=== PATIENT | male | born 1955 | race Caucasian/White ===

== ENCOUNTER 2019-08-17 17:19 | Inpatient (IN) | payer OTHER ==
[2019-08-17 18:09] LABS: BASO % 0.4 % (0-2.0); EOS % 0.3 % (0-4.5); HEMATOCRIT 33.5 % (35.4-49); LYMPH % 8.2 % (8-40); MCHC 32.7 g/dl (32.0-35.9); MEAN CELL VOLUME 91.8 fl (80-96); MEAN PLT VOLUME 8.9 fl (7.5-11.1); MONO % 10.3 % (3.8-10.2); NEUT % 80.8 % (42.8-82.8); PLATELET COUNT 327 K/MM3 (134-434); RBC 3.66 M/mm3 (4.00-5.60); RDW 18.8 % (11.9-15.9); WHITE BLOOD COUNT 10.2 K/mm3 (4.0-10.0)
[2019-08-17] MEDS ORDERED: ACETAMINOPHEN 1000 MG/100 ML VIAL (NON FORMULARY) IVPB ONE (18:12)
[2019-08-17 18:25] LABS: INR 1.2 (0.83-1.09); PROTHROMBIN TIME (PATIENT) 14.2 SEC (9.7-13.0)
[2019-08-17 18:28] LABS: ACTIVATED PTT 29.9 SECONDS (25.2-36.5)
[2019-08-17 18:30] LABS: VENOUS PC02 47.2 mmHg (38-52); VENOUS PH 7.41 (7.31-7.41); VENOUS PO2 < 49 mmHg (28-48)
[2019-08-17 18:31] LABS: VENOUS BASE EXCESS 3.8 mmol/L (-2-2)
[2019-08-17] MEDS ORDERED: ACETAMINOPHEN INJECTION 100 ML IVPB ONE (18:31)
[2019-08-17 18:45] LABS: ALBUMIN 2.6 g/dl (3.4-5.0); BILIRUBIN,TOTAL 0.5 mg/dL (0.2-1); BLOOD UREA NITROGEN 49.9 mg/dL (7-18); CALCIUM 9.5 mg/dL (8.5-10.1); CREATININE 4.4 mg/dL (0.55-1.3); POTASSIUM 5.1 mmol/L (3.5-5.1); TOT PROT 7.6 g/dl (6.4-8.2)
[2019-08-17] MEDS ORDERED: PANTOPRAZOLE SODIUM 40 MG VIAL IVPUSH ONE (19:37)
[2019-08-17] MEDS ORDERED: PIPERACILLIN/TAZOB 2.25 GM 2.25 GM in DEXTROSE 5%-WATER - 50 ML IVPB ONE (19:40)
[2019-08-17] MEDS ORDERED: SODIUM CHLORIDE 500 ML IV ONE (19:41)
[2019-08-17] MEDS ORDERED: PANTOPRAZOLE SODIUM 40 MG VIAL ONE (19:50)
[2019-08-17] MEDS ORDERED: PIPERACILLIN/TAZOB 2.25 GM 2.25 GM/50 ML BAG IVPB ONE (19:50)
[2019-08-17] MEDS ORDERED: ACETAMINOPHEN 325 MG TABLET (FP) PO PRN (20:12)
[2019-08-17] MEDS ORDERED: hydrALAZINE HCL 25 MG TABLET (FP) ONE (21:42)
[2019-08-17] MEDS ORDERED: ATORVASTATIN CA 80 MG TABLET (FP) ONE (21:43)
[2019-08-17] MEDS ORDERED: GABAPENTIN 100 MG CAPSULE ONE (21:43)
[2019-08-17] MEDS ORDERED: METOPROLOL TARTRATE 50 MG TABLET (FP) ONE (21:43)
[2019-08-17] MEDS ORDERED: SENNOSIDES 8.6MG TABLET (FP) PO ONE (21:43)
[2019-08-17] MEDS ORDERED: SENNOSIDES 8.6MG TABLET (FP) PO SCH (22:00)
[2019-08-17] MEDS ORDERED: ISOSORBIDE DINITRATE 10 MG TABLET PO SCH (22:00)
[2019-08-17] MEDS ORDERED: ALBUTEROL SO4 0.083% IH SOL 2.5 MG/3 ML VIAL.NEB. NEB PRN (22:00)
[2019-08-17] MEDS: METOPROLOL TARTRATE 50 MG TABLET (FP) PO SCH (22:43)
[2019-08-17] MEDS: ATORVASTATIN CA 80 MG TABLET (FP) PO SCH (22:43)
[2019-08-17] MEDS: hydrALAZINE HCL 50 MG TABLET (FP) PO SCH (22:43)
[2019-08-17] MEDS: GABAPENTIN 100 MG CAPSULE PO SCH (22:43)
[2019-08-18] MEDS: METOPROLOL TARTRATE 50 MG TABLET (FP) PO SCH ×3 (06:17→22:03)
[2019-08-18] MEDS: hydrALAZINE HCL 50 MG TABLET (FP) PO SCH ×3 (06:17→22:02)
[2019-08-18] MEDS: GABAPENTIN 100 MG CAPSULE PO SCH (06:18)
[2019-08-18 07:56] LABS: BASO % 0.1 % (0-2.0); EOS % 0.8 % (0-4.5); HEMATOCRIT 29.7 % (35.4-49); HEMOGLOBIN 9.5 GM/dL (11.7-16.9); LYMPH % 7.1 % (8-40); MCH 29.1 pg (25.7-33.7); MEAN PLT VOLUME 8.8 fl (7.5-11.1); MONO % 10.1 % (3.8-10.2); NEUT % 81.9 % (42.8-82.8); PLATELET COUNT 279 K/MM3 (134-434); RBC 3.26 M/mm3 (4.00-5.60); RDW 18.5 % (11.9-15.9); WHITE BLOOD COUNT 12.2 K/mm3 (4.0-10.0)
[2019-08-18 08:12] LABS: ALBUMIN 2.4 g/dl (3.4-5.0); BILIRUBIN,TOTAL 0.6 mg/dL (0.2-1); BLOOD UREA NITROGEN 56.7 mg/dL (7-18); CALCIUM 9.5 mg/dL (8.5-10.1); CREATININE 4.9 mg/dL (0.55-1.3); MAGNESIUM 2.6 mg/dL (1.8-2.4); POTASSIUM 4.8 mmol/L (3.5-5.1); TOT PROT 6.8 g/dl (6.4-8.2)
[2019-08-18] MEDS: ISOSORBIDE DINITRATE 10 MG TABLET PO SCH ×3 (09:29→18:31)
[2019-08-18] MEDS: VITAMIN B COMP W-C 1 EA TABLET (NEPHRO-VITE) PO SCH (09:29)
[2019-08-18] MEDS: FERROUS SO4 325 MG TABLET (FP) PO SCH (09:29)
[2019-08-18] MEDS: CALCIUM ACETATE 667 MG CAPSULE (FP) PO SCH ×3 (09:34→18:28)
[2019-08-18] MEDS ORDERED: PANTOPRAZOLE SODIUM 40 MG VIAL IVPUSH SCH ×2 (10:00→12:30)
[2019-08-18] MEDS ORDERED: SODIUM CHLORIDE 250 ML IV PRN (10:25)
[2019-08-18] MEDS: PANTOPRAZOLE SODIUM 80 MG in SODIUM CHLORIDE 100 ML IVPB SCH ×2 (14:23→23:19)
[2019-08-18] MEDS ORDERED: PT OWN MED DRAWER 7, Y5N ONE ×2 (18:26→21:56)
[2019-08-18] MEDS ORDERED: PIPERACILLIN/TAZOBACTAM 2.25 GM VIAL IVPB ONE (18:26)
[2019-08-18] MEDS ORDERED: DEXTROSE 5%-WATER - 50 ML IVPB ONE (18:27)
[2019-08-18] MEDS: PIPERACILLIN/TAZOB 2.25 GM 2.25 GM in DEXTROSE 5%-WATER - 50 ML IVPB SCH (18:29)
[2019-08-18] MEDS: ATORVASTATIN CA 80 MG TABLET (FP) PO SCH (22:03)
[2019-08-19] MEDS ORDERED: PIPERACILLIN/TAZOBACTAM 2.25 GM VIAL IVPB ONE ×3 (00:59→17:00)
[2019-08-19] MEDS ORDERED: DEXTROSE 5%-WATER - 50 ML IVPB ONE ×3 (00:59→17:00)
[2019-08-19] MEDS: PIPERACILLIN/TAZOB 2.25 GM 2.25 GM in DEXTROSE 5%-WATER - 50 ML IVPB SCH ×3 (01:50→17:38)
[2019-08-19] MEDS ORDERED: PT OWN MED DRAWER 7, Y5N ONE ×3 (05:21→20:06)
[2019-08-19] MEDS: METOPROLOL TARTRATE 50 MG TABLET (FP) PO SCH ×3 (06:06→21:20)
[2019-08-19] MEDS: hydrALAZINE HCL 50 MG TABLET (FP) PO SCH ×3 (06:06→21:20)
[2019-08-19] MEDS ORDERED: EPOETIN ALFA-EPBX 4,000 UNIT/ML VIAL IVPUSH ONE (07:00)
[2019-08-19] MEDS: ISOSORBIDE DINITRATE 10 MG TABLET PO SCH ×3 (08:07→17:37)
[2019-08-19] MEDS: CALCIUM ACETATE 667 MG CAPSULE (FP) PO SCH ×4 (08:08→17:37)
[2019-08-19 08:23] LABS: HEMATOCRIT 28.4 % (35.4-49); HEMOGLOBIN 9.1 GM/dL (11.7-16.9); MCH 29.2 pg (25.7-33.7); MCHC 32.1 g/dl (32.0-35.9); MEAN CELL VOLUME 90.8 fl (80-96); MEAN PLT VOLUME 8.9 fl (7.5-11.1); PLATELET COUNT 290 K/MM3 (134-434); RBC 3.13 M/mm3 (4.00-5.60); RDW 18.4 % (11.9-15.9); WHITE BLOOD COUNT 11.5 K/mm3 (4.0-10.0)
[2019-08-19 09:00] LABS: BLOOD UREA NITROGEN 68.8 mg/dL (7-18); CREATININE 5.9 mg/dL (0.55-1.3); POTASSIUM 4.7 mmol/L (3.5-5.1)
[2019-08-19] MEDS: PANTOPRAZOLE SODIUM 80 MG in SODIUM CHLORIDE 100 ML IVPB SCH ×2 (10:40→21:20)
[2019-08-19] MEDS: FERROUS SO4 325 MG TABLET (FP) PO SCH (10:45)
[2019-08-19] MEDS: VITAMIN B COMP W-C 1 EA TABLET (NEPHRO-VITE) PO SCH (10:45)
[2019-08-19] MEDS: COLLAGENASE CLOSTRIDIUM HIST. 30 GRAMS TUBE TP SCH (15:15)
[2019-08-19] MEDS: ATORVASTATIN CA 80 MG TABLET (FP) PO SCH (21:21)
[2019-08-20] MEDS ORDERED: DEXTROSE 5%-WATER - 50 ML IVPB ONE ×3 (00:58→17:07)
[2019-08-20] MEDS ORDERED: PIPERACILLIN/TAZOBACTAM 2.25 GM VIAL IVPB ONE ×3 (00:58→17:07)
[2019-08-20] MEDS: PIPERACILLIN/TAZOB 2.25 GM 2.25 GM in DEXTROSE 5%-WATER - 50 ML IVPB SCH ×3 (01:34→17:41)
[2019-08-20] MEDS: PANTOPRAZOLE SODIUM 80 MG in SODIUM CHLORIDE 100 ML IVPB SCH ×4 (05:17→19:02)
[2019-08-20] MEDS: METOPROLOL TARTRATE 50 MG TABLET (FP) PO SCH ×3 (06:14→21:22)
[2019-08-20] MEDS: hydrALAZINE HCL 50 MG TABLET (FP) PO SCH ×3 (06:14→21:22)
[2019-08-20] MEDS: CALCIUM ACETATE 667 MG CAPSULE (FP) PO SCH ×4 (10:21→17:41)
[2019-08-20] MEDS: VITAMIN B COMP W-C 1 EA TABLET (NEPHRO-VITE) PO SCH (10:21)
[2019-08-20] MEDS: FERROUS SO4 325 MG TABLET (FP) PO SCH (10:21)
[2019-08-20] MEDS: ISOSORBIDE DINITRATE 10 MG TABLET PO SCH ×3 (10:23→17:41)
[2019-08-20] MEDS: COLLAGENASE CLOSTRIDIUM HIST. 30 GRAMS TUBE TP SCH (16:07)
[2019-08-20] MEDS ORDERED: SODIUM CHLORIDE 250 ML IV PRN (17:54)
[2019-08-20] MEDS: ATORVASTATIN CA 80 MG TABLET (FP) PO SCH (21:22)
[2019-08-21] MEDS: PANTOPRAZOLE SODIUM 80 MG in SODIUM CHLORIDE 100 ML IVPB SCH ×2 (01:47→05:04)
[2019-08-21] MEDS ORDERED: PIPERACILLIN/TAZOBACTAM 2.25 GM VIAL IVPB ONE ×3 (01:55→17:31)
[2019-08-21] MEDS ORDERED: DEXTROSE 5%-WATER - 50 ML IVPB ONE ×3 (01:56→17:32)
[2019-08-21] MEDS: PIPERACILLIN/TAZOB 2.25 GM 2.25 GM in DEXTROSE 5%-WATER - 50 ML IVPB SCH ×3 (02:02→17:41)
[2019-08-21] MEDS: METOPROLOL TARTRATE 50 MG TABLET (FP) PO SCH ×3 (06:29→21:15)
[2019-08-21] MEDS: hydrALAZINE HCL 50 MG TABLET (FP) PO SCH ×3 (06:33→21:15)
[2019-08-21 08:17] LABS: BASO % 0.2 % (0-2.0); EOS % 1.2 % (0-4.5); HEMATOCRIT 29.5 % (35.4-49); HEMOGLOBIN 9.6 GM/dL (11.7-16.9); LYMPH % 10.5 % (8-40); MCH 29.6 pg (25.7-33.7); MCHC 32.4 g/dl (32.0-35.9); MEAN CELL VOLUME 91.3 fl (80-96); MEAN PLT VOLUME 8.8 fl (7.5-11.1); MONO % 10.4 % (3.8-10.2); NEUT % 77.7 % (42.8-82.8); PLATELET COUNT 240 K/MM3 (134-434); RBC 3.23 M/mm3 (4.00-5.60); WHITE BLOOD COUNT 10.8 K/mm3 (4.0-10.0)
[2019-08-21 08:35] LABS: BLOOD UREA NITROGEN 34.9 mg/dL (7-18); CALCIUM 9.1 mg/dL (8.5-10.1); CREATININE 4.5 mg/dL (0.55-1.3); POTASSIUM 3.8 mmol/L (3.5-5.1)
[2019-08-21] MEDS: CALCIUM ACETATE 667 MG CAPSULE (FP) PO SCH ×3 (09:45→17:38)
[2019-08-21] MEDS: ISOSORBIDE DINITRATE 10 MG TABLET PO SCH ×3 (09:45→17:38)
[2019-08-21] MEDS ORDERED: SUCRALFATE 1 GM/10 ML UNIT DOSE CUPS PO SCH (10:00)
[2019-08-21] MEDS: PANTOPRAZOLE 40 MG TABLET PO SCH ×2 (10:56→21:15)
[2019-08-21] MEDS: FERROUS SO4 325 MG TABLET (FP) PO SCH (10:56)
[2019-08-21] MEDS: COLLAGENASE CLOSTRIDIUM HIST. 30 GRAMS TUBE TP SCH (10:56)
[2019-08-21] MEDS: VITAMIN B COMP W-C 1 EA TABLET (NEPHRO-VITE) PO SCH (10:56)
[2019-08-21] MEDS ORDERED: EPOETIN ALFA-EPBX 4,000 UNIT/ML VIAL IVPUSH ONE (12:45)
[2019-08-21] MEDS ORDERED: PT OWN MED DRAWER 7, Y5N ONE ×2 (17:31→17:40)
[2019-08-21] MEDS: ATORVASTATIN CA 80 MG TABLET (FP) PO SCH (21:15)
[2019-08-22] MEDS ORDERED: PIPERACILLIN/TAZOBACTAM 2.25 GM VIAL IVPB ONE ×3 (01:43→16:54)
[2019-08-22] MEDS ORDERED: DEXTROSE 5%-WATER - 50 ML IVPB ONE ×3 (01:43→16:54)
[2019-08-22] MEDS: PIPERACILLIN/TAZOB 2.25 GM 2.25 GM in DEXTROSE 5%-WATER - 50 ML IVPB SCH ×3 (02:08→17:12)
[2019-08-22] MEDS: hydrALAZINE HCL 50 MG TABLET (FP) PO SCH ×3 (06:32→22:31)
[2019-08-22] MEDS: METOPROLOL TARTRATE 50 MG TABLET (FP) PO SCH ×3 (06:33→22:32)
[2019-08-22] MEDS ORDERED: PT OWN MED DRAWER 7, Y5N ONE (08:26)
[2019-08-22] MEDS: ISOSORBIDE DINITRATE 10 MG TABLET PO SCH ×3 (08:36→17:12)
[2019-08-22] MEDS: CALCIUM ACETATE 667 MG CAPSULE (FP) PO SCH ×3 (08:36→17:12)
[2019-08-22] MEDS: PANTOPRAZOLE 40 MG TABLET PO SCH ×2 (10:16→22:31)
[2019-08-22] MEDS: FERROUS SO4 325 MG TABLET (FP) PO SCH (10:16)
[2019-08-22] MEDS: VITAMIN B COMP W-C 1 EA TABLET (NEPHRO-VITE) PO SCH (10:16)
[2019-08-22] MEDS: COLLAGENASE CLOSTRIDIUM HIST. 30 GRAMS TUBE TP SCH (10:37)
[2019-08-22] MEDS: ATORVASTATIN CA 80 MG TABLET (FP) PO SCH (22:32)
[2019-08-23] MEDS ORDERED: PIPERACILLIN/TAZOBACTAM 2.25 GM VIAL IVPB ONE ×3 (02:23→17:10)
[2019-08-23] MEDS ORDERED: DEXTROSE 5%-WATER - 50 ML IVPB ONE ×3 (02:23→17:10)
[2019-08-23] MEDS: PIPERACILLIN/TAZOB 2.25 GM 2.25 GM in DEXTROSE 5%-WATER - 50 ML IVPB SCH ×3 (02:28→17:27)
[2019-08-23] MEDS: METOPROLOL TARTRATE 50 MG TABLET (FP) PO SCH ×3 (05:44→21:27)
[2019-08-23] MEDS: hydrALAZINE HCL 50 MG TABLET (FP) PO SCH ×3 (05:44→21:27)
[2019-08-23] MEDS: FERROUS SO4 325 MG TABLET (FP) PO SCH (09:01)
[2019-08-23] MEDS: VITAMIN B COMP W-C 1 EA TABLET (NEPHRO-VITE) PO SCH (09:01)
[2019-08-23] MEDS: CALCIUM ACETATE 667 MG CAPSULE (FP) PO SCH ×3 (09:01→17:27)
[2019-08-23] MEDS: PANTOPRAZOLE 40 MG TABLET PO SCH ×2 (09:01→21:27)
[2019-08-23] MEDS: ISOSORBIDE DINITRATE 10 MG TABLET PO SCH ×3 (09:02→17:39)
[2019-08-23] MEDS: COLLAGENASE CLOSTRIDIUM HIST. 30 GRAMS TUBE TP SCH (11:18)
[2019-08-23] MEDS ORDERED: SODIUM CHLORIDE 250 ML IV PRN (15:32)
[2019-08-23] MEDS: ATORVASTATIN CA 80 MG TABLET (FP) PO SCH (21:27)
[2019-08-24] MEDS ORDERED: PIPERACILLIN/TAZOBACTAM 2.25 GM VIAL IVPB ONE ×2 (01:30→12:00)
[2019-08-24] MEDS ORDERED: DEXTROSE 5%-WATER - 50 ML IVPB ONE ×2 (01:30→12:00)
[2019-08-24] MEDS: PIPERACILLIN/TAZOB 2.25 GM 2.25 GM in DEXTROSE 5%-WATER - 50 ML IVPB SCH ×2 (01:38→12:14)
[2019-08-24] MEDS: METOPROLOL TARTRATE 50 MG TABLET (FP) PO SCH ×3 (05:29→22:01)
[2019-08-24] MEDS: hydrALAZINE HCL 50 MG TABLET (FP) PO SCH ×3 (05:29→22:01)
[2019-08-24] MEDS ORDERED: PT OWN MED DRAWER 7, Y5N ONE ×3 (12:00→17:04)
[2019-08-24] MEDS: VITAMIN B COMP W-C 1 EA TABLET (NEPHRO-VITE) PO SCH (12:14)
[2019-08-24] MEDS: FERROUS SO4 325 MG TABLET (FP) PO SCH (12:14)
[2019-08-24] MEDS: CALCIUM ACETATE 667 MG CAPSULE (FP) PO SCH ×2 (12:15→17:09)
[2019-08-24] MEDS: ISOSORBIDE DINITRATE 10 MG TABLET PO SCH ×3 (12:16→17:08)
[2019-08-24] MEDS: COLLAGENASE CLOSTRIDIUM HIST. 30 GRAMS TUBE TP SCH (12:17)
[2019-08-24] MEDS: PANTOPRAZOLE 40 MG TABLET PO SCH ×2 (12:17→22:01)
[2019-08-24] MEDS: ATORVASTATIN CA 80 MG TABLET (FP) PO SCH (22:01)
[2019-08-25] MEDS: hydrALAZINE HCL 50 MG TABLET (FP) PO SCH ×3 (06:49→22:03)
[2019-08-25] MEDS: METOPROLOL TARTRATE 50 MG TABLET (FP) PO SCH (06:49)
[2019-08-25] MEDS: APIXABAN 2.5 MG TABLET PO SCH ×3 (06:50→22:03)
[2019-08-25] MEDS ORDERED: PT OWN MED DRAWER 7, Y5N ONE ×4 (09:08→18:46)
[2019-08-25] MEDS: ISOSORBIDE DINITRATE 10 MG TABLET PO SCH ×3 (09:29→18:53)
[2019-08-25] MEDS: CALCIUM ACETATE 667 MG CAPSULE (FP) PO SCH ×3 (09:29→18:52)
[2019-08-25] MEDS: VITAMIN B COMP W-C 1 EA TABLET (NEPHRO-VITE) PO SCH (09:30)
[2019-08-25] MEDS: PANTOPRAZOLE 40 MG TABLET PO SCH ×2 (09:30→22:03)
[2019-08-25] MEDS: FERROUS SO4 325 MG TABLET (FP) PO SCH (09:30)
[2019-08-25] MEDS: COLLAGENASE CLOSTRIDIUM HIST. 30 GRAMS TUBE TP SCH (09:31)
[2019-08-25] MEDS: POLYETHYLENE GLYCOL 3350 119 GM BTL PO SCH (12:55)
[2019-08-25] MEDS: MIRTAZAPINE 15 MG TABLET (FP) PO SCH (22:03)
[2019-08-25] MEDS: ATORVASTATIN CA 80 MG TABLET (FP) PO SCH (22:03)
[2019-08-26] MEDS: hydrALAZINE HCL 50 MG TABLET (FP) PO SCH ×3 (06:10→21:59)
[2019-08-26 08:49] LABS: HEMOGLOBIN 9.7 GM/dL (11.7-16.9); MCH 29.6 pg (25.7-33.7); MCHC 32.2 g/dl (32.0-35.9); MEAN CELL VOLUME 91.9 fl (80-96); MEAN PLT VOLUME 9.5 fl (7.5-11.1); PLATELET COUNT 206 K/MM3 (134-434); RBC 3.26 M/mm3 (4.00-5.60); RDW 19.5 % (11.9-15.9)
[2019-08-26 11:13] LABS: BLOOD UREA NITROGEN 23.1 mg/dL (7-18); CALCIUM 8.6 mg/dL (8.5-10.1); CREATININE 4.3 mg/dL (0.55-1.3); POTASSIUM 3.4 mmol/L (3.5-5.1)
[2019-08-26] MEDS ORDERED: SODIUM CHLORIDE 250 ML IV PRN (12:44)
[2019-08-26] MEDS ORDERED: PT OWN MED DRAWER 7, Y5N ONE (14:27)
[2019-08-26] MEDS: ISOSORBIDE DINITRATE 10 MG TABLET PO SCH ×3 (14:43→17:40)
[2019-08-26] MEDS: VITAMIN B COMP W-C 1 EA TABLET (NEPHRO-VITE) PO SCH (14:43)
[2019-08-26] MEDS: PANTOPRAZOLE 40 MG TABLET PO SCH ×2 (14:43→21:58)
[2019-08-26] MEDS: FERROUS SO4 325 MG TABLET (FP) PO SCH (14:43)
[2019-08-26] MEDS: APIXABAN 2.5 MG TABLET PO SCH ×2 (14:44→21:59)
[2019-08-26] MEDS: CALCIUM ACETATE 667 MG CAPSULE (FP) PO SCH ×3 (14:44→17:41)
[2019-08-26] MEDS: COLLAGENASE CLOSTRIDIUM HIST. 30 GRAMS TUBE TP SCH (14:46)
[2019-08-26 14:55] VITALS: BMI 16.8
[2019-08-26] MEDS: POLYETHYLENE GLYCOL 3350 119 GM BTL PO SCH (14:57)
[2019-08-26] MEDS ORDERED: AMINO ACIDS/PROTEIN HYDROLYS 30 ML LIQUID.PKT PO SCH (17:30)
[2019-08-26] MEDS: AMINO ACIDS/PROTEIN HYDROLYS 30 ML LIQUID.PKT PO SCH (17:41)
[2019-08-26] MEDS: ATORVASTATIN CA 80 MG TABLET (FP) PO SCH (21:59)
[2019-08-26] MEDS: MIRTAZAPINE 15 MG TABLET (FP) PO SCH (21:59)
[2019-08-27] MEDS: hydrALAZINE HCL 50 MG TABLET (FP) PO SCH ×3 (06:58→21:23)
[2019-08-27] MEDS ORDERED: PT OWN MED DRAWER 7, Y5N ONE ×2 (08:52→14:06)
[2019-08-27] MEDS: ISOSORBIDE DINITRATE 10 MG TABLET PO SCH ×3 (08:59→17:24)
[2019-08-27] MEDS: CALCIUM ACETATE 667 MG CAPSULE (FP) PO SCH ×3 (08:59→17:24)
[2019-08-27] MEDS: AMINO ACIDS/PROTEIN HYDROLYS 30 ML LIQUID.PKT PO SCH ×2 (09:00→17:22)
[2019-08-27] MEDS: FERROUS SO4 325 MG TABLET (FP) PO SCH (11:21)
[2019-08-27] MEDS: APIXABAN 2.5 MG TABLET PO SCH ×2 (11:21→21:24)
[2019-08-27] MEDS: VITAMIN B COMP W-C 1 EA TABLET (NEPHRO-VITE) PO SCH (11:21)
[2019-08-27] MEDS: COLLAGENASE CLOSTRIDIUM HIST. 30 GRAMS TUBE TP SCH (11:21)
[2019-08-27] MEDS: POLYETHYLENE GLYCOL 3350 119 GM BTL PO SCH (11:21)
[2019-08-27] MEDS: PANTOPRAZOLE 40 MG TABLET PO SCH ×2 (11:21→21:22)
[2019-08-27] MEDS ORDERED: SODIUM CHLORIDE 250 ML IV PRN (11:48)
[2019-08-27] MEDS: MIRTAZAPINE 15 MG TABLET (FP) PO SCH (21:23)
[2019-08-27] MEDS: ATORVASTATIN CA 80 MG TABLET (FP) PO SCH (21:24)
[2019-08-28] MEDS: hydrALAZINE HCL 50 MG TABLET (FP) PO SCH ×2 (06:19→15:39)
[2019-08-28] MEDS: ISOSORBIDE DINITRATE 10 MG TABLET PO SCH ×2 (09:00→15:39)
[2019-08-28] MEDS: AMINO ACIDS/PROTEIN HYDROLYS 30 ML LIQUID.PKT PO SCH (09:00)
[2019-08-28] MEDS: CALCIUM ACETATE 667 MG CAPSULE (FP) PO SCH ×2 (09:00→15:40)
[2019-08-28] MEDS: APIXABAN 2.5 MG TABLET PO SCH (09:48)
[2019-08-28] MEDS: VITAMIN B COMP W-C 1 EA TABLET (NEPHRO-VITE) PO SCH (09:48)
[2019-08-28] MEDS: FERROUS SO4 325 MG TABLET (FP) PO SCH (09:48)
[2019-08-28] MEDS: PANTOPRAZOLE 40 MG TABLET PO SCH (09:48)
[2019-08-28] MEDS: COLLAGENASE CLOSTRIDIUM HIST. 30 GRAMS TUBE TP SCH (09:49)
[2019-08-28] MEDS: POLYETHYLENE GLYCOL 3350 119 GM BTL PO SCH (09:49)
[2019-08-28] MEDS ORDERED: PT OWN MED DRAWER 7, Y5N ONE (15:42)
[2019-08-28 17:36] VITALS: TEMP 9837
[2019-08-28 17:39] VITALS: BP 135/89; PULSE 95
== END 2019-08-28 16:50 | DRG 377 ==
LOC: JER 17:19 → JERBED 19:43 → J5S 08-18 01:10
PROVIDERS: ADMIT Internal Medicine; ATTEND Internal Medicine
PROC: 0DB78ZX Excision of Stomach, Pylorus, Via Natural or Artificial Opening Endoscopic, Diagnostic (ICD-10-PCS; 2019-08-21)
PROC: 0DB68ZX Excision of Stomach, Via Natural or Artificial Opening Endoscopic, Diagnostic (ICD-10-PCS; 2019-08-21)
PROC: 0DB58ZX Excision of Esophagus, Via Natural or Artificial Opening Endoscopic, Diagnostic (ICD-10-PCS; 2019-08-21)
PROC: 0W3P8ZZ Control Bleeding in Gastrointestinal Tract, Via Natural or Artificial Opening Endoscopic (ICD-10-PCS; 2019-08-21)
PROC: 0DB98ZX Excision of Duodenum, Via Natural or Artificial Opening Endoscopic, Diagnostic (ICD-10-PCS; principal; 2019-08-21 09:30)
DX: K25.4 Chronic or unspecified gastric ulcer with hemorrhage (principal); L89.153 Pressure ulcer of sacral region, stage 3; N18.6 End stage renal disease; J96.21 Acute and chronic respiratory failure with hypoxia; E43 Unspecified severe protein-calorie malnutrition; J69.0 Pneumonitis due to inhalation of food and vomit; I13.2 Hypertensive heart and chronic kidney disease with heart failure and with stage 5 chronic kidney disease, or end stage renal disease; I50.22 Chronic systolic (congestive) heart failure; I48.20 Chronic atrial fibrillation, unspecified; R64 Cachexia; I96 Gangrene, not elsewhere classified; Z68.1 Body mass index [BMI] 19.9 or less, adult; K22.10 Ulcer of esophagus without bleeding; I42.8 Other cardiomyopathies; Z99.2 Dependence on renal dialysis; I25.10 Atherosclerotic heart disease of native coronary artery without angina pectoris; Z99.81 Dependence on supplemental oxygen; Z87.891 Personal history of nicotine dependence; Z86.19 Personal history of other infectious and parasitic diseases; I71.4 Abdominal aortic aneurysm, without rupture; D64.9 Anemia, unspecified; K22.70 Barrett's esophagus without dysplasia
CPT/HCPCS: 36415; 71045-TC-FY; 74174-TC; 74230-TC-FY; 76775-TC; 80048; 80053; 80061; 82272; 82803; 83036; 83721; 83735; 84439; 84443; 84484; 85025; 85027; 85610; 85730; 86803; 86850; 86900; 86901; 87040; 87070; 87186; 87205; 87340; 88305-TC; 92611-GN; 93005; 93010; 93306-TC; 99285-25; E0186; J0131; Q5106; Q9967; U0003

== ENCOUNTER 2019-11-12 21:09 | Emergency (ER) | payer OTHER ==
[2019-11-12 21:48] VITALS: BMI 22.1
[2019-11-12] MEDS ORDERED: METOPROLOL TARTRATE 5 MG/5 ML VIAL IVPUSH ONE ×2 (22:06→22:58)
[2019-11-12] MEDS ORDERED: METOPROLOL TARTRATE 5 MG/5 ML VIAL ONE ×2 (22:23→23:10)
[2019-11-12 22:27] LABS: BASO % 1.7 % (0-2.0); EOS % 2.5 % (0-4.5); HEMATOCRIT 24.4 % (35.4-49); HEMOGLOBIN 7.9 GM/dL (11.7-16.9); MCH 33.1 pg (25.7-33.7); MCHC 32.3 g/dl (32.0-35.9); MEAN CELL VOLUME 102.3 fl (80-96); MEAN PLT VOLUME 8.6 fl (7.5-11.1); MONO % 8.7 % (3.8-10.2); NEUT % 68.1 % (42.8-82.8); PLATELET COUNT 212 K/MM3 (134-434); RBC 2.39 M/mm3 (4.00-5.60); WHITE BLOOD COUNT 9.4 K/mm3 (4.0-10.0)
[2019-11-12 22:32] LABS: INR 1.22 (0.83-1.09); PROTHROMBIN TIME (PATIENT) 14.4 SEC (9.7-13.0)
[2019-11-12 22:35] LABS: ACTIVATED PTT 31.2 SECONDS (25.2-36.5)
--- NOTE | 2019-11-12 22:54 | PDOC ---
Documentation entered by Liz Mcelroy SCRIBE, acting as scribe for Mindy Pagan DO. Mindy Pagan DO: This documentation has been prepared by the Navi chávez Brenda, SCRIBE, under my direction and personally reviewed by me in its entirety. I confirm that the documentation accurately reflects all work, treatment, procedures, and medical decision making performed by me. Attending Attestation - Resident Resident Name: Eduardo Mcneil - ED Attending Attestation I have performed the following: I have examined & evaluated the patient, The case was reviewed & discussed with the resident, I agree w/resident's findings & plan, Exceptions are as noted - HPI HPI: 11/12/19 22:25 The patient is a 64 year old male with a significant PMH of known Afib who presents to the ED [facility] from [facility] for evaluation of possible SVT. The patient was seen by vascular surgeon Dr. Rashaad Guaman ([facility] - associated with [facility]) on November 04 and did stents bilaterally in the femoral arteries and an angioplasty. Dr. Dilia Ramesh saw the patient on Saturday (11/11/19) and noticed swelling in his groin and called the vascular surgeon, Dr. Guaman. 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 While on the table , prior to the procedure, the anesthesiologist and the vascular surgeon noted the patient's heart rate went up to 135 and reported he was in SVT, so they aborted the surgery and sent him to [facility]. They did not treat him for SVT. The patient is unaware of what is going on and is a poor historian. Spoke to Dr. Dilia Ramesh who advised to rate control him (patient is currently in Afib RVR) and send him to [facility] and she will follow up with vascular in the morning. PCP: Rere Carrera - Physicial Exam PE: 11/12/19 22:35 GENERAL: Awake, alert, and fully oriented, in no acute distress HEAD: No signs of trauma NECK: Normal ROM, supple, no lymphadenopathy, JVD, or masses LUNGS: Breath sounds equal, clear to auscultation bilaterally. No wheezes, and no crackles HEART: (+) Tachycardic (+) Irregularly irregular. Normal S1 and S2, no murmurs, rubs or gallops ABDOMEN: Soft, nontender, normoactive bowel sounds. No guarding, no rebound. No masses EXTREMITIES: (+) Left groin has echymosis and swelling from prior cath site and angiogram/angioplasty. Normal range of motion, no edema. No clubbing or c yanosis. No cords, erythema, or tenderness NEUROLOGICAL: Cranial nerves II through XII grossly intact. Normal speech, normal gait SKIN: Warm, Dry, normal turgor, no rashes or lesions noted. 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 Rashaad Garrett) -Dr. Garrett performed an ultrasound and a pseudoanurysm which he was going to repair -when eval by anesthesia - felt he was in svt, gave adenosine, but HR only 135- 145 at the time of anesthesia eval -pt did not "break" and was sent to the ER -pt traveled from [place] to [place] by ambulance, pt arrives in afib w rvr, HR 120 -hx of afib -case discussed with Dr. dilia Venegas, Dr. Morro Carrera, Dr. Garrett -Dr. Venegas recommends rate control and then dc back to [facility] so she can reschedule eval by Dr. Garrett [facility] surgeon 11/12/19 22:57 will check labs will give lopressor iv 11/12/19 23:26 labs reviewed pt is HD, due for HD tomorrow 11/12/19 23:54 pt still with HR 104-110 pt did not have am meds will dose metoprolol pt tolearted po when HR improved will be stable for dc back to [facility] family updated Heart Score/ECG Review - ECG Intrepretation Comment:: 11/12/19 22:57 afib w rvr at 118, st depressions laterally, lvh, abnl ekg Discharge - Discharge Information Problems reviewed: Yes Clinical Impression/Diagnosis: A-fib Condition: Stable Disposition: JAIL FACILITY - Admission No - Follow up/Referral Referrals: Rere Carrera MD [Primary Care Provider] - - Patient Discharge Instructions - Post Discharge Activity
--- NOTE | 2019-11-12 22:56 | PDOC ---
History of Present Illness - General Chief Complaint: Irregular Heart Beat Stated Complaint: RAPID HEART BEAT Time Seen by Provider: 11/12/19 21:20 - History of Present Illness Initial Comments: 11/12/19 22:54 9/3 B/L GROIN STENTING WENT FROM [facility] -> [facility] [place]ASCULAR SURGEON -> PSEUDOANEURYSM OF SUPERICIAL FEMORAL ARTERY. -> TACHY IN IR SUITE -> ADENOSINE AT HR 135 -> VASCULAR CALLED PCP -> "GO TO CLOSEST ER" PER PCP -> PT CAME HERE. 64yoM resident at [facility] h/o AF and EDGARDO presents w/ AF RVR at vascular lab today. denies sx. 11/13/19 01:18 Past History - Medical History Allergies/Adverse Reactions: Allergies Allergy/AdvReac Type Severity Reaction Status Date / Time No Known Allergies Allergy Verified 08/17/19 18:01 Home Medications: Ambulatory Orders Acetaminophen [Tylenol] 650 mg PO QID PRN 08/17/19 Albuterol 0.083% Nebulizer Alicia [Ventolin 0.083% Nebulizer Soln -] 1 neb NEB QID 08/17/19 Apixaban [Eliquis -] 2.5 mg PO BID 08/17/19 Atorvastatin Calcium 80 mg PO HS 08/17/19 Calcium Acetate [Phoslo -] 1,334 mg PO TIDCM 08/17/19 Ferrous Sulfate [Feosol] 325 mg PO DAILY 08/17/19 Isosorbide Dinitrate [Isordil] 30 mg PO TID 08/17/19 Pantoprazole Sodium [Protonix -] 40 mg PO BID 08/17/19 Sennosides [Senokot] 8.6 mg PO HS 08/17/19 Vitamin B Comp W-C [Nephro-Dago -] 1 tablet PO DAILY 08/17/19 Amino Acids/Protein Hydrolys [Prosource No Carb Liquid Pkt] 30 ml PO BID@0800,1730 #14 packet 08/27/19 Apixaban [Eliquis -] 2.5 mg PO BID #30 tablet 08/27/19 Metoprolol Succinate [Toprol XL -] 200 mg PO DAILY #30 tab.sr.24h 08/27/19 Mirtazapine [Remeron -] 7.5 mg PO HS #30 tablet 08/27/19 Polyethylene Glycol 3350 [Miralax 119 gm Btl -] 17 gm PO DAILY #1 bottle 08/27/19 hydrALAZINE HCL [Apresoline -] 50 mg PO TID #60 tablet 08/27/19 Anemia: Yes (transfused in past) Cardiac Disorders: Yes (a fib,) COPD: Yes (resp failure s/p intubation) CHF: Yes (EF @ 30%) Dialysis: Yes (M / W / F) HTN: Yes Hypercholesterolemia: Yes - Surgical History Abdominal Surgery: Yes (hernia repair) - Psycho-Social/Smoking History Smoking History: Never smoked Have you smoked in the past 12 months: No Information on smoking cessation initiated: No - Substance Abuse Hx (Audit-C & DAST Scrn) How often the patient has a drink containing alcohol: Never Score: In Men: 4 or > Positive; In Women: 3 or > Positive: 0 Screen Result (Pos requires Nsg. Audit-10AR): Negative In the last yr the pt used illegal drug/Rx for NonMed reason: No Score: Yes response is considered Positive: 0 Screen Result (Positive result requires Nsg. DAST-10): Negative Review of Systems - Review of Systems Able to Perform ROS?: Yes Is the patient limited Japanese proficient: No Constitutional: No: Chills, Diaphoresis, Fever HEENTM: No: Symptoms Reported, Tinnitus Respiratory: No: Cough, Stridor, Productive cough Cardiac (ROS): No: Chest Pain, Irregular Heart Rate, Lightheadedness, Palpitations, Syncope ABD/GI: No: Constipated, Diarrhea, Nausea, Poor Appetite, Poor Fluid Intake, Vomiting : No: Dysuria, Discharge, Hematuria Musculoskeletal: No: Muscle Weakness Integumentary: No: Erythema, Rash, Sweating Neurological: No: Numbness, Paresthesia, Pre-Existing Deficit, Tingling, Weakness, Unsteady Gait, Dizziness *Physical Exam - Vital Signs Last Vital Signs Temp Pulse Resp BP Pulse Ox 98.2 F 111 H 20 150/108 H 97 11/12/19 21:10 11/12/19 21:10 11/12/19 21:10 11/12/19 21:10 11/12/19 21:10 - Physical Exam General Appearance: Yes: Nourished, Appropriately Dressed, Disheveled, Thin HEENT: positive: Normal Voice, Hearing Grossly Normal Neck: positive: Trachea midline, Supple Respiratory/Chest: positive: Lungs Clear, Normal Breath Sounds. negative: Chest Tender, Respiratory Distress, Accessory Muscle Use, Labored Respiration Cardiovascular: positive: Tachycardia, Irregularly Irregular Gastrointestinal/Abdominal: positive: Normal Bowel Sounds, Soft. negative: Tender, Pulsatile Mass Extremity: positive: Normal Capillary Refill, Normal Inspection, Coldness Integumentary: positive: Ecchymosis Neurologic: positive: Fully Oriented, Alert, Normal Response ED Treatment Course - LABORATORY CBC & Chemistry Diagram: 11/12/19 22:00 11/12/19 22:00 - ADDITIONAL ORDERS Additional order review: Laboratory Results 11/12/19 22:00 PT with INR 14.40 H INR 1.22 H PTT (Actin FS) 31.2 11/12/19 22:00 RBC 2.39 L MCV 102.3 H MCHC 32.3 RDW 18.0 H MPV 8.6 Neutrophils % 68.1 Lymphocytes % 19.0 D Monocytes % 8.7 Eosinophils % 2.5 D Basophils % 1.7 D - RADIOLOGY Radiology Studies Ordered: Category Date Time Status CXRPORT [CHEST X-RAY PORTABLE*] [RAD] Stat Radiology 11/12/19 21:33 Completed Discharge - Discharge Information Problems reviewed: Yes Clinical Impression/Diagnosis: A-fib Qualifiers: Atrial fibrillation type: unspecified chronic Qualified Code(s): I48.20 - Chronic atrial fibrillation, unspecified Condition: Stable Disposition: NURSING HOME FACILITY - Admission No - Follow up/Referral Referrals: Rere Carrera MD [Primary Care Provider] - - Patient Discharge Instructions - Post Discharge Activity
[2019-11-12] MEDS ORDERED: METOPROLOL TARTRATE 25 MG TABLET (FP) PO ONE ×2 (22:58→23:52)
[2019-11-12 23:04] LABS: ALBUMIN 2.4 g/dl (3.4-5.0); ALK PHOS 80 U/L (45-117); ANION GAP 9 MMOL/L (8-16); BILIRUBIN,TOTAL 0.6 mg/dL (0.2-1); BLOOD UREA NITROGEN 33.6 mg/dL (7-18); CALCIUM 8.3 mg/dL (8.5-10.1); CHLORIDE 97 mmol/L (98-107); CO2 30 mmol/L (21-32); CREATININE 3.2 mg/dL (0.55-1.3); GLUCOSE,RANDOM 84 mg/dL (74-106); POTASSIUM 3.5 mmol/L (3.5-5.1); SGOT/AST 16 U/L (15-37); SGPT/ALT 20 U/L (13-61); SODIUM 135 mmol/L (136-145); TOT PROT 6.6 g/dl (6.4-8.2)
[2019-11-12] MEDS ORDERED: METOPROLOL TARTRATE 25 MG TABLET (FP) ONE ×2 (23:10→23:54)
[2019-11-12] MEDS ORDERED: LACTATED RINGERS SOLUTION 1000 ML INFUS.BAG IV ONE (23:26)
[2019-11-12] MEDS ORDERED: METOPROLOL TARTRATE 50 MG TABLET (FP) PO ONE ×2 (23:52)
[2019-11-12] MEDS ORDERED: METOPROLOL TARTRATE 50 MG TABLET (FP) ONE (23:54)
[2019-11-13 06:30] VITALS: BP 130/100; PULSE 102; TEMP 97.8
--- NOTE | 2019-11-13 09:08 | EKG ---
Test Reason : Blood Pressure : / mmHG Vent. Rate : 118 BPM Atrial Rate : 117 BPM P-R Int : 000 ms QRS Dur : 094 ms QT Int : 320 ms P-R-T Axes : 000 082 144 degrees QTc Int : 448 ms ATRIAL FIBRILLATION WITH RAPID VENTRICULAR RESPONSE MODERATE VOLTAGE CRITERIA FOR LVH, MAY BE NORMAL VARIANT NONSPECIFIC ST AND T WAVE ABNORMALITY ABNORMAL ECG WHEN COMPARED WITH ECG OF 28-AUG-2019 08:57, ST NO LONGER DEPRESSED IN ANTERIOR LEADS T WAVE INVERSION NO LONGER EVIDENT IN ANTERIOR LEADS INVERTED T WAVES HAVE REPLACED NONSPECIFIC T WAVE ABNORMALITY IN LATERAL LEADS Confirmed by ESTEFANÍA TEJADA MD ([id number]) on 11/13/2019 9:07:54 AM Referred By: Confirmed By:ESTEFANÍA TEJADA MD
== END 2019-11-13 02:09 ==
LOC: JER 21:09
PROC: 3E033GC Introduction of Other Therapeutic Substance into Peripheral Vein, Percutaneous Approach (ICD-10-PCS; principal; 2019-11-12)
DX: I48.20 Chronic atrial fibrillation, unspecified (principal)
CPT/HCPCS: 36415; 71045-TC-FY; 80053; 82550; 84443; 84484; 85025; 85610; 85730; 93005; 93010; 99285-25